=== PATIENT | male | born 1955 | race Caucasian/White ===

== ENCOUNTER 2016-10-22 17:15 | Emergency (ER) | payer OTHER ==
[~2016-10-22] VITALS: Ht 180.3 cm; Wt 112.1 kg
[2016-10-22 17:20] VITALS: TEMP 36.7; Ht 180.3 cm; Wt 112.1 kg
[2016-10-22] MEDS ORDERED: PROPARACAINE HCL 0.5% OP SOLN 15 ML BTL OP STA (17:32)
[2016-10-22] MEDS ORDERED: ATEN-173 PO (17:46)
[2016-10-22] MEDS ORDERED: CRS/10 PO (17:47)
[2016-10-22] MEDS ORDERED: CLOP1TAB15 PO (17:48)
[2016-10-22] MEDS ORDERED: ASPI81TA28 PO (17:48)
[2016-10-22] MEDS ORDERED: CIPR0.3S OPL (17:51)
--- NOTE | 2016-10-22 17:52 | EMERGENCY ROOM VISIT NOTE ---
ED Visit Note First contact with patient: 17:26 CHIEF COMPLAINT: Foreign body of the eye HISTORY OF PRESENT ILLNESS: This 61-year-old male patient presents to the emergency department ambulatory complaining of pain and foreign body sensation in the left eye. Chest and states he was hitting a metal nail into concrete without eye protection just prior to arrival. He states he feels that he got a piece of metal in his left eye due to the pain and foreign body sensation. The patient did see a sliver of metal in his left eye. There has been a constant moderate pain and irritation, redness and tearing in the eye. Pain and hearing are worse with blinking. The vision has not been decreased over all. The patient does not wear contacts. The patient rates the pain as 2/10. The patient has not had previous injuries to this eye. The patient did use Visine prior to arrival with temporary relief. Tetanus shot is up to date. REVIEW OF SYSTEMS: A 6 system review of systems was completed with positives and pertinent negatives listed in the HPI. ALLERGIES: Atorvastatin MEDICATIONS: Aspirin, atenolol, clopidogrel, Crestor PMH: Hyperlipidemia, hypertension, heart disease SOCIAL HISTORY: The patient is from the [facility]. He denies drug, alcohol, tobacco use. PHYSICAL EXAM: Vital Signs: Reviewed Nurse's notes, vital signs stable. GENERAL : This is a 61-year-old male, in no acute distress, but who is uncomfortable from the eye problem. Well-developed well-nourished. EYES: The pupils are equal round and reactive to light and accommodation. EOMs are full and without tenderness. There is watery discharge from the left eye which is injected. There is a small piece of metal visible on the cornea at 7:00. There is no foreign body visible under the eyelid after lid eversion. No foreign body was seen embedded in the cornea under slit lamp exam. The cornea was clear and no hyphema was seen. Fluorescein uptake was observed with ultraviolet light significant for a corneal abrasion only around the previous location of the foreign body. EMERGENCY DEPARTMENT COURSE: I examined the patient. Alcaine 2 drops were placed in the patient's left eye. A slit lamp exam was performed as above. Verbal consent was obtained to perform the procedure. The metallic foreign body was removed using a moistened cotton swab. The patient was given a prescription for Ciloxin drops and advised on recommendations for use. I encouraged the patient to follow-up with ophthalmology. The patient was discharged home in good condition. DIFFERENTIAL DIAGNOSIS: Foreign body of cornea, corneal abrasion, and others. DIAGNOSIS: Foreign body with subsequent corneal abrasion of the left eye DISCHARGE INSTRUCTIONS AND TREATMENT: Use Ciloxin two drops in left eye every two hours while awake for two days; then two drops every four hours while awake for three days. Use Ibuprofen 600 mg or Tylenol 1000 mg every 6 hrs as needed for moderate pain. See your eye doctor in 24-48 hours for a recheck. Return to the ED for increasing pain or changes in vision. Current/Historical Medications Scheduled Aspirin (Aspirin Ec), 81 MG PO DAILY Atenolol (Tenormin), 25 MG PO DAILY Ciprofloxacin Hcl (Ophth) (Ciloxan Oph), 2 DROPS OPL Q2H Clopidogrel (Plavix), 75 MG PO DAILY Rosuvastatin Calcium (Crestor), 10 MG PO DAILY Allergies Coded Allergies: Atorvastatin (Verified Allergy, Intermediate, MUSCLE PAIN, 10/22/16) Vital Signs Date Time Temp Pulse Resp B/P (MAP) Pulse Ox O2 Delivery O2 Flow Rate FiO2 10/22/16 18:10 66 16 145/88 94 10/22/16 17:20 36.7 70 18 144/92 94 Room Air Departure Information Impression Primary Impression: Foreign body in eye Dispostion Home / Self-Care Condition GOOD Prescriptions Ciprofloxacin Hcl (Ophth) (CILOXAN OPH) 0.3 % [place] 2 DROPS OPL Q2H for 5 Days, #1 BTL Prov: Rosy Nielsen PA-C 10/22/16 Referrals No Doctor, Assigned (PCP) Jose Almaraz M.D. Patient Instructions ED Foreign Body Cornea, My [facility] Additional Instructions Use Ciloxin two drops in left eye every two hours while awake for two days; then two drops every four hours while awake for three days. Use Ibuprofen 600 mg or Tylenol 1000 mg every 6 hrs as needed for moderate pain. See your eye doctor in 24-48 hours for a recheck. Return to the ED for increasing pain or changes in vision. Problem Qualifiers Primary Impression: Foreign body in eye Encounter type: initial encounter Laterality: left Qualified Codes: T15.92XA - Foreign body on external eye, part unspecified, left eye, initial encounter
[2016-10-22 18:10] VITALS: BP 145/88; PULSE 66; O2SAT 94
== END 2016-10-22 18:11 | disposition home or self-care (01) ==
LOC: C.EDB 17:18 → C.EDD 18:11
DX: T15.92XA Foreign body on external eye, part unspecified, left eye, initial encounter (principal); S05.02XA Injury of conjunctiva and corneal abrasion without foreign body, left eye, initial encounter; X58.XXXA Exposure to other specified factors, initial encounter; Y93.89 Activity, other specified; Y99.8 Other external cause status; I10 Essential (primary) hypertension; E78.5 Hyperlipidemia, unspecified; Z79.02 Long term (current) use of antithrombotics/antiplatelets; Z79.82 Long term (current) use of aspirin; Z79.899 Other long term (current) drug therapy